=== PATIENT | female | born 1985 | race Caucasian/White ===

== ENCOUNTER 2021-08-02 16:45 | Inpatient (IN) | payer OTHER ==
[2021-08-02 18:01] VITALS: BMI 26.7
[2021-08-02] MEDS ORDERED: hydrOXYzine PAMOATE 25 MG CAPSULE (FP) PO PRN (20:57)
[2021-08-02] MEDS ORDERED: ACETAMINOPHEN 325 MG TABLET (FP) PO PRN ×2 (20:57)
[2021-08-02] MEDS ORDERED: MENTHOL/PHENOL 1 EACH UD MM PRN (20:57)
[2021-08-02] MEDS ORDERED: BISMUTH SUBSALICYLATE 524 MG/30 ML PO PRN (20:57)
[2021-08-02] MEDS ORDERED: MAGNESIUM HYDROX 2400MG/30ML ORAL SUSPENSION 30 ML CUP PO PRN (20:57)
[2021-08-02] MEDS ORDERED: MAG HYDROX/AL HYDROX/SIMETH 30 ML UNIT-DOSE CUP PO PRN (20:57)
[2021-08-02] MEDS ORDERED: MAGNESIUM CITRATE 300 ML BOTTLE PO PRN (20:57)
[2021-08-02] MEDS ORDERED: ONDANSETRON *ODT* 4 MG TABLET SL PRN (20:57)
[2021-08-02] MEDS ORDERED: IBUPROFEN 400 MG TABLET (FP) PO PRN (20:57)
[2021-08-02] MEDS ORDERED: METHOCARBAMOL 500 MG TABLET PO PRN (20:57)
[2021-08-02] MEDS ORDERED: NICOTINE 10 MG CARTRIDGE (INHALER) IH PRN (20:57)
[2021-08-02] MEDS ORDERED: NICOTINE POLACRILEX 2 MG GUM BUC PRN (20:57)
[2021-08-02] MEDS ORDERED: diazePAM 5 MG TABLET PO PRN (21:01)
[2021-08-03] MEDS: diazePAM 5 MG TABLET PO SCH ×5 (00:46→23:46)
[2021-08-03] MEDS: MELATONIN 5 MG TABLETS PO SCH ×2 (00:46→23:46)
[2021-08-03] MEDS: THIAMINE HCL 100 MG TABLET (FP) PO SCH ×2 (00:47→23:46)
[2021-08-03] MEDS: PRENATAL VITAMINS W/ FOLIC ACID TABLET (FP) PO SCH (10:57)
[2021-08-03 11:40] LABS: HEMATOCRIT 38.5 % (32.4-45.2); HEMOGLOBIN 13.3 GM/dL (10.7-15.3); MCH 30.9 pg (25.7-33.7); MCHC 34.4 g/dl (32.0-36.0); MEAN CELL VOLUME 89.7 fl (80-96); MEAN PLT VOLUME 9.5 fl (7.5-11.1); PLATELET COUNT 261 10^3/uL (134-434); RBC 4.29 M/mm3 (3.60-5.2); RDW 13.6 % (11.6-15.6); WHITE BLOOD COUNT 10.4 K/mm3 (4.0-10.0)
[2021-08-03 11:50] LABS: CALCIUM 8.6 mg/dL (8.5-10.1)
[2021-08-03 11:51] LABS: ALBUMIN 3.1 g/dl (3.4-5.0); BLOOD UREA NITROGEN 16.5 mg/dL (7-18)
[2021-08-03 11:54] LABS: CREATININE 0.8 mg/dL (0.55-1.3)
[2021-08-03 11:58] LABS: BILIRUBIN,TOTAL 0.6 mg/dL (0.2-1)
[2021-08-03 14:31] LABS: HIV INTERPRETATION NEGATIVE (NEGATIVE)
[2021-08-04] MEDS: diazePAM 5 MG TABLET PO SCH ×2 (06:32→15:01)
[2021-08-04 09:13] VITALS: TEMP 96.4
[2021-08-04] MEDS: PRENATAL VITAMINS W/ FOLIC ACID TABLET (FP) PO SCH (10:43)
[2021-08-04 13:03] VITALS: BP 118/67; PULSE 73
[2021-08-05] MEDS ORDERED: diazePAM 5 MG TABLET PO SCH (06:00)
[2021-08-06] MEDS ORDERED: diazePAM 5 MG TABLET PO ONE (06:00)
== END 2021-08-04 15:02 | disposition left against medical advice (07) | DRG 770 ==
LOC: YASAS 16:45 → Y3N 22:38
PROVIDERS: ADMIT Allergy & Immunology; ATTEND Allergy & Immunology
PROC: HZ2ZZZZ Detoxification Services for Substance Abuse Treatment (ICD-10-PCS; principal; 2021-08-02)
DX: F10.230 Alcohol dependence with withdrawal, uncomplicated (principal); F14.10 Cocaine abuse, uncomplicated; F12.20 Cannabis dependence, uncomplicated; F17.210 Nicotine dependence, cigarettes, uncomplicated
CPT/HCPCS: 36415; 80053; 85027; 86780; 87389